=== PATIENT | male | born 1965 | race African-American/Black ===

== ENCOUNTER 2023-11-12 13:55 | Emergency (ER) | payer OTHER ==
[2023-11-12 14:09] VITALS: BP 144/94; PULSE 91; RESP 18; TEMP 98.2; BMI 31.1
[2023-11-12] MEDS ORDERED: ACETAMINOPHEN 500 MG TABLET (FP) ONE (15:36)
[2023-11-12] MEDS: ACETAMINOPHEN 500 MG TABLET (FP) PO ONE (15:44)
== END 2023-11-12 16:44 | disposition home or self-care (01) ==
LOC: JERFT 13:55
DX: M54.2 Cervicalgia (principal); R51.9 Headache, unspecified; R42 Dizziness and giddiness; V49.50XA Passenger injured in collision with unspecified motor vehicles in traffic accident, initial encounter; Y92.410 Unspecified street and highway as the place of occurrence of the external cause
CPT/HCPCS: 70450-TC; 72125-TC; 99284-25